=== PATIENT | female | born 1970 | race Caucasian/White ===

== ENCOUNTER 2021-07-26 00:29 | Outpatient (CLI) | payer BC, SELFPAY ==
[2021-07-26] MEDS: Normal Saline Flush 10 ML SYR IVP (10:38)
[2021-07-26] MEDS: Gadoterate meglumine 20 ML VIAL IVP (10:39)
--- NOTE | 2021-07-26 11:10 | DI.MRI_ITS ---
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 Both noninfused and contrast i nfused sequences were performed. IV Contrast injected was 20 cc Dotarem. COMPARISON: No exams were available for comparison FINDINGS: CEREBRAL PARENCHYMA: No evidence of intracranial hemorrhage, mass effect nor shift of midline structu re. No extraaxial fluid collections. Ventricles are not enlarged nor shifted. There is no significant focal signal abnormality in the cerebellar hemispheres nor within the rachna, m idbrain, and thalami. There is no abnormal signal abnormality in the periventricular white matter. There are no ring enhancing lesions in the brain. There is no abnormal meningeal enhancement. DWI: No evidence of restricted diffusion SWI: No evidence of hemorrhages PITUITARY GLAND: No mass nor parasellar abnormality. No obvious abnormality in the cavernous sinuses. FLOW VOIDS: The expected flow void are noted. No evidence of obvious aneurysm nor obvious vascular ma lformation. PARANASAL SINUSES: The visualized paranasal sinuses appear unremarkable. ORBITS: No obvious abnormal findings. IMPRESSION: 1. No significant intracranial findings on this MRI scan of the brain. 2. No abnormal ring enhancing intracranial lesions. No abnormal meningeal enhancement. DATA REPOSITORY:
== END 2021-07-26 00:49 ==
PROVIDERS: PCP Nurse Practitioner Family; Visit Provider Internal Medicine
DX: C74.02 Malignant neoplasm of cortex of left adrenal gland (principal); Z12.89 Encounter for screening for malignant neoplasm of other sites
CPT/HCPCS: 70553

== ENCOUNTER 2021-07-26 00:41 | Outpatient (RCR) | payer BC, SELFPAY ==
[2021-07-26] MEDS: Normal Saline Flush 10 ML SYR IVP (09:54)
[2021-07-26] MEDS: Heparin 500 UNITS/5 ML SYRINGE (09:54)
[2021-07-26 10:05] LABS: ALT 30 U/L (14-59); AST 17 U/L (15-37); Albumin 3.1 g/dL (3.4-5.0); Alkaline Phosphatase 106 U/L (46-116); Anion Gap 9.4 mmol/L (3-11); BUN 14 mg/dL (7-18); Bilirubin, Total 0.4 mg/dL (0.2-1.0); CO2 29.6 mmol/L (21.0-32.0); CREATININE 0.8 mg/dL (0.55-1.02); Calcium 8.7 mg/dL (8.5-10.1); Chloride 100 mmol/L (98-107); Glucose 132 mg/dL (74-106); Sodium 139 mmol/L (136-145)
== END 2021-07-28 23:59 | disposition home or self-care (01) ==
LOC: INF 00:41
PROVIDERS: PCP Nurse Practitioner Family; Visit Provider Internal Medicine
DX: C74.02 Malignant neoplasm of cortex of left adrenal gland (principal); Z45.2 Encounter for adjustment and management of vascular access device
CPT/HCPCS: 36591; 80053; 96523

== ENCOUNTER 2021-08-15 01:24 | Outpatient (RCR) | payer BC, SELFPAY ==
[2021-08-15] MEDS: Normal Saline Flush 10 ML SYR IVP (10:05)
[2021-08-15 10:19] LABS: Abs Immature Grans 0.03 10^3/uL (0.0-0.06); Absolute Eosinophil Count 0.04 10^3/uL (0.0-0.7); Absolute Lymphocyte Count 1.56 10^3/uL (1.2-3.4); Absolute Monocyte Count 0.64 10^3/uL (0.1-0.8); Absolute Neutrophil Count 4.44 10^3/uL (1.2-6.7); Basophils % 1.5; Eosinophils % 0.6; HCT 34.9 % (36.0-46.0); HGB 10.6 g/dL (11.2-15.7); Immature Grans % 0.4; Lymphocytes % 22.9; MCH 26.6 pg (27.0-33.0); MCHC 30.4 % (32.0-36.0); MCV 87.5 fL (80-95); MPV 8.6 fL (8.0-11.0); Monocytes % 9.4; Neutrophils % 65.2; Nucleated RBC 0 %; Platelet Count 334 10^3/uL (130-400); RBC 3.99 10^6/uL (3.93-5.22); RDW 17.2 % (11.7-14.6); WBC 6.81 10^3/uL (4.4-10.8)
[2021-08-15 10:41] LABS: ALT 32 U/L (14-59); AST 14 U/L (15-37); Albumin 3.2 g/dL (3.4-5.0); Alkaline Phosphatase 98 U/L (46-116); Anion Gap 8.1 mmol/L (3-11); BUN 9 mg/dL (7-18); Bilirubin, Total 0.2 mg/dL (0.2-1.0); CO2 26.9 mmol/L (21.0-32.0); CREATININE 0.7 mg/dL (0.55-1.02); Calcium 8.7 mg/dL (8.5-10.1); Chloride 105 mmol/L (98-107); FREE T4 0.67 ng/dL (0.76-1.46); Glucose 119 mg/dL (74-106); Potassium 3.8 mmol/L (3.5-5.1); Sodium 140 mmol/L (136-145); TSH 3.12 uIU/mL (0.36-3.74); Total Protein 6.9 g/dL (6.4-8.2)
[2021-08-25 15:52] LABS: Misc Referral (MAYO) See Comments
== END 2021-08-28 23:59 | disposition home or self-care (01) ==
LOC: INF 01:24
PROVIDERS: PCP Nurse Practitioner Family; Visit Provider Internal Medicine
DX: C74.02 Malignant neoplasm of cortex of left adrenal gland (principal); Z45.2 Encounter for adjustment and management of vascular access device; R94.6 Abnormal results of thyroid function studies; Z79.899 Other long term (current) drug therapy
CPT/HCPCS: 36591; 80053; 80299; 84439; 84443; 85025

== ENCOUNTER 2021-09-12 00:55 | Outpatient (RCR) | payer BC, SELFPAY ==
[2021-09-12] MEDS: Normal Saline Flush 10 ML SYR IVP ×2 (08:08→11:04)
[2021-09-12 08:32] LABS: Abs Immature Grans 0.02 10^3/uL (0.0-0.06); Absolute Basophil Count 0.07 10^3/uL (0.0-0.2); Absolute Eosinophil Count 0.05 10^3/uL (0.0-0.7); Absolute Lymphocyte Count 1.74 10^3/uL (1.2-3.4); Absolute Monocyte Count 0.46 10^3/uL (0.1-0.8); Absolute Neutrophil Count 3.86 10^3/uL (1.2-6.7); Basophils % 1.1; Eosinophils % 0.8; HCT 34.2 % (36.0-46.0); HGB 10.5 g/dL (11.2-15.7); Immature Grans % 0.3; Lymphocytes % 28.1; MCHC 30.7 % (32.0-36.0); MCV 91.2 fL (80-95); MPV 8.4 fL (8.0-11.0); Monocytes % 7.4; Neutrophils % 62.3; Nucleated RBC 0 %; Platelet Count 361 10^3/uL (130-400); RBC 3.75 10^6/uL (3.93-5.22); RDW 18.9 % (11.7-14.6); RDW-SD 63.3 fL
[2021-09-12 08:53] LABS: ALT 32 U/L (14-59); AST 21 U/L (15-37); Albumin 3.3 g/dL (3.4-5.0); Alkaline Phosphatase 115 U/L (46-116); Anion Gap 9.5 mmol/L (3-11); BUN 9 mg/dL (7-18); Bilirubin, Total 0.2 mg/dL (0.2-1.0); CO2 27.5 mmol/L (21.0-32.0); CREATININE 0.8 mg/dL (0.55-1.02); Calcium 8.7 mg/dL (8.5-10.1); Chloride 105 mmol/L (98-107); FREE T4 0.62 ng/dL (0.76-1.46); Glucose 117 mg/dL (74-106); Potassium 3.6 mmol/L (3.5-5.1); Sodium 142 mmol/L (136-145); TSH 3.18 uIU/mL (0.36-3.74)
[2021-09-12] MEDS: Heparin 500 UNITS/5 ML SYRINGE IV (11:04)
[2021-09-12 14:05] LABS: Magnesium 1.9 mg/dL (1.8-2.4)
[2021-09-27 11:20] LABS: Misc Referral (MAYO) See Comments
== END 2021-09-25 23:59 | disposition home or self-care (01) ==
LOC: INF 00:55
PROVIDERS: Nurse Practitioner Adult Health; PCP Nurse Practitioner Family; Visit Provider Internal Medicine
DX: C74.02 Malignant neoplasm of cortex of left adrenal gland (principal); Z45.2 Encounter for adjustment and management of vascular access device
CPT/HCPCS: 36591; 80053; 80299; 83735; 84439; 84443; 85025

== ENCOUNTER 2021-10-10 00:56 | Outpatient (RCR) | payer BC, SELFPAY ==
[2021-10-10] MEDS: Normal Saline Flush 10 ML SYR IVP (10:46)
[2021-10-10 11:00] LABS: Abs Immature Grans 0.01 10^3/uL (0.0-0.06); Absolute Basophil Count 0.07 10^3/uL (0.0-0.2); Absolute Eosinophil Count 0.03 10^3/uL (0.0-0.7); Absolute Lymphocyte Count 1.17 10^3/uL (1.2-3.4); Absolute Monocyte Count 0.61 10^3/uL (0.1-0.8); Absolute Neutrophil Count 5.15 10^3/uL (1.2-6.7); Eosinophils % 0.4; HCT 30.3 % (36.0-46.0); HGB 9.4 g/dL (11.2-15.7); Immature Grans % 0.1; Lymphocytes % 16.6; MCH 29.6 pg (27.0-33.0); MCV 95.3 fL (80-95); MPV 8.6 fL (8.0-11.0); Monocytes % 8.7; Neutrophils % 73.2; Nucleated RBC 0 %; Platelet Count 387 10^3/uL (130-400); RBC 3.18 10^6/uL (3.93-5.22); RDW 19.4 % (11.7-14.6); RDW-SD 68.1 fL; WBC 7.04 10^3/uL (4.4-10.8)
[2021-10-10 11:23] LABS: ALT 21 U/L (14-59); AST 18 U/L (15-37); Albumin 3.4 g/dL (3.4-5.0); Alkaline Phosphatase 122 U/L (46-116); BUN 11 mg/dL (7-18); Bilirubin, Total 0.2 mg/dL (0.2-1.0); CREATININE 0.7 mg/dL (0.55-1.02); Calcium 8.7 mg/dL (8.5-10.1); Chloride 107 mmol/L (98-107); FREE T4 0.65 ng/dL (0.76-1.46); Glucose 103 mg/dL (74-106); Magnesium 1.8 mg/dL (1.8-2.4); Potassium 4.2 mmol/L (3.5-5.1); Sodium 141 mmol/L (136-145); TSH 3.35 uIU/mL (0.36-3.74); Total Protein 7.1 g/dL (6.4-8.2)
[2021-10-19 13:01] LABS: Misc Referral (MAYO) See Comments
== END 2021-10-26 23:59 | disposition home or self-care (01) ==
LOC: INF 00:56
PROVIDERS: PCP Nurse Practitioner Family; Visit Provider Internal Medicine
DX: R94.6 Abnormal results of thyroid function studies (principal); Z79.899 Other long term (current) drug therapy; C74.02 Malignant neoplasm of cortex of left adrenal gland; Z45.2 Encounter for adjustment and management of vascular access device
CPT/HCPCS: 36591; 80053; 80299; 83735; 84439; 84443; 85025

== ENCOUNTER 2021-11-07 02:37 | Outpatient (RCR) | payer BC, SELFPAY ==
[2021-11-07 10:50] LABS: Abs Immature Grans 0.01 10^3/uL (0.0-0.06); Absolute Basophil Count 0.06 10^3/uL (0.0-0.2); Absolute Eosinophil Count 0.06 10^3/uL (0.0-0.7); Absolute Lymphocyte Count 0.85 10^3/uL (1.2-3.4); Absolute Monocyte Count 0.69 10^3/uL (0.1-0.8); Absolute Neutrophil Count 3.02 10^3/uL (1.2-6.7); Basophils % 1.3; Eosinophils % 1.3; HGB 9.3 g/dL (11.2-15.7); Immature Grans % 0.2; Lymphocytes % 18.1; MCH 31.2 pg (27.0-33.0); MCV 100.7 fL (80-95); MPV 8.2 fL (8.0-11.0); Monocytes % 14.7; Neutrophils % 64.4; Nucleated RBC 0 %; Platelet Count 268 10^3/uL (130-400); RBC 2.98 10^6/uL (3.93-5.22); RDW-SD 66.9 fL; WBC 4.69 10^3/uL (4.4-10.8)
[2021-11-07] MEDS: Normal Saline Flush 10 ML SYR IVP (11:11)
[2021-11-07 11:12] LABS: ALT 24 U/L (14-59); AST 18 U/L (15-37); Albumin 3.4 g/dL (3.4-5.0); Alkaline Phosphatase 115 U/L (46-116); Anion Gap 5.6 mmol/L (3-11); BUN 7 mg/dL (7-18); Bilirubin, Total 0.2 mg/dL (0.2-1.0); CO2 29.4 mmol/L (21.0-32.0); CREATININE 0.7 mg/dL (0.55-1.02); Calcium 8.5 mg/dL (8.5-10.1); Chloride 104 mmol/L (98-107); FREE T4 0.62 ng/dL (0.76-1.46); Glucose 104 mg/dL (74-106); Magnesium 1.4 mg/dL (1.8-2.4); Potassium 3.7 mmol/L (3.5-5.1); Sodium 139 mmol/L (136-145); TSH 2.25 uIU/mL (0.36-3.74); Total Protein 6.9 g/dL (6.4-8.2)
[2021-11-12 12:28] LABS: Mitotane (Lysodren) 3.9 ug/ml
== END 2021-11-25 23:59 | disposition home or self-care (01) ==
LOC: INF 02:37
PROVIDERS: PCP Nurse Practitioner Family; Visit Provider Internal Medicine
DX: Z45.2 Encounter for adjustment and management of vascular access device (principal); Z79.899 Other long term (current) drug therapy; C74.02 Malignant neoplasm of cortex of left adrenal gland; R94.6 Abnormal results of thyroid function studies
CPT/HCPCS: 36591; 80053; 80299; 83735; 84439; 84443; 85025

== ENCOUNTER 2022-01-09 02:07 | Outpatient (RCR) | payer BC, SELFPAY ==
[2022-01-09] MEDS: Normal Saline Flush 10 ML SYR IVP (08:43)
[2022-01-09] MEDS: Heparin 500 UNITS/5 ML SYRINGE IV (08:43)
[2022-01-09 09:00] LABS: Abs Immature Grans 0.01 10^3/uL (0.0-0.06); Absolute Basophil Count 0.04 10^3/uL (0.0-0.2); Absolute Eosinophil Count 0.39 10^3/uL (0.0-0.7); Absolute Monocyte Count 0.55 10^3/uL (0.1-0.8); Absolute Neutrophil Count 3.51 10^3/uL (1.2-6.7); Basophils % 0.7; HCT 33.3 % (36.0-46.0); HGB 10.8 g/dL (11.2-15.7); Immature Grans % 0.2; Lymphocytes % 19.6; MCH 31.7 pg (27.0-33.0); MCHC 32.4 % (32.0-36.0); MCV 98 fL (80-95); MPV 9.6 fL (8.0-11.0); Monocytes % 9.8; Neutrophils % 62.7; Platelet Count 330 10^3/uL (130-400); RBC 3.41 10^6/uL (3.93-5.22)
[2022-01-09 09:25] LABS: ALT 51 U/L (14-59); AST 34 U/L (15-37); Albumin 3.4 g/dL (3.4-5.0); Alkaline Phosphatase 204 U/L (46-116); Anion Gap 7.3 mmol/L (3-11); BUN 15 mg/dL (7-18); Bilirubin, Total 0.2 mg/dL (0.2-1.0); CO2 29.7 mmol/L (21.0-32.0); CREATININE 1.2 mg/dL (0.55-1.02); Calcium 9.3 mg/dL (8.5-10.1); Chloride 101 mmol/L (98-107); Estimated GFR 47.75 (mL/min/1.73m2); FREE T4 0.76 ng/dL (0.76-1.46); Glucose 128 mg/dL (74-106); Magnesium 1.7 mg/dL (1.8-2.4); Potassium 3.6 mmol/L (3.5-5.1); Sodium 138 mmol/L (136-145); TSH 4.34 uIU/mL (0.36-3.74); Total Protein 7.5 g/dL (6.4-8.2)
[2022-01-24 14:21] LABS: Mitotane (Lysodren) 3.7 ug/ml
== END 2022-01-25 23:59 | disposition home or self-care (01) ==
LOC: INF 02:07
PROVIDERS: PCP Nurse Practitioner Family; Visit Provider Internal Medicine
DX: Z45.2 Encounter for adjustment and management of vascular access device (principal); C74.02 Malignant neoplasm of cortex of left adrenal gland; R94.6 Abnormal results of thyroid function studies; Z79.899 Other long term (current) drug therapy
CPT/HCPCS: 36591; 80053; 80299; 83735; 84439; 84443; 85025